=== PATIENT | male | born 1970 | race Caucasian/White ===

== ENCOUNTER 2020-02-28 06:21 | Day surgery (SDC) | payer MEDICARE ==
[~2020-02-28] VITALS: Ht 165.1 cm; Wt 152.4 kg
--- NOTE | ~2020-02-28 | OP ---
PATIENT NAME: CALI TURNER MEDICAL RECORD: [id number] :68 LOCATION:D.OPS ADMISSION DATE: SURGEON: DONALD ZAMORANO DPM DATE OF OPERATION: 02/28/2020 PREOPERATIVE DIAGNOSES: Right ankle ATF rupture and ankle arthritis. POSTOPERATIVE DIAGNOSES: Right ankle ATF rupture and ankle arthritis. PROCEDURES: 1. Right ankle scope. 2. Right ATF ligament repair. ANESTHESIA: Preoperative popliteal block per the anesthesia department as well as infiltration of the right ankle intraoperatively with Marcaine plain, 10 cc total as well as general anesthesia. HEMOSTASIS: Right thigh tourniquet at 350 mmHg. PREOPERATIVE DETAILS: The patient was taken to the OR and placed on the operating table in supine position. This was followed by induction of general anesthesia. The right extremity was then prepped and draped in usual aseptic technique followed by exsanguination of extremity and inflation of tourniquet. At this time, the Marcaine was infiltrated in the ankle joint. PROCEDURE #1: Ankle arthroscopy, right. Two small stab incisions were made over the anterior medial shoulder and anterior lateral shoulder of the right ankle. The incisions were carried down bluntly to the joint capsule and were punctured the camera was introduced to the medial portal through the cannula. Initial evaluation showed significant chondromalacia, hypertrophied capsule, adhesions. The synovial shaver was introduced in the lateral portal and extensive synovial hypertrophied tissue as well as chondromalacia debridement occur. The portals were switched with the camera introduced laterally and the synovial shaver medially. Continued extensive debridement occurred. There was noted to be significant arthritis of the talar dome as well as anterior distal tibia had significant chondromalacia. Camera and synovial shaver were removed. PROCEDURE #2: ATF repair, right ankle. The lateral stab incision was lengthened distal in a hockey J incision and finished just under the distal fibula. The incision was deepened down through subcutaneous tissue, cauterizing vessels as we went. Dissection was carried down to the joint capsule where a capsulotomy was performed. The ATF ligament was essentially gone. The ligament was recreated with the internal brace with an implant in the talus as well as the fibula. Once the internal brace was placed in a proper anatomic fitment. There was excellent range of motion of the joint as well as negative anterior drawer test. At this time, a modified Brostrom was performed over the top of the repair followed by closure of the deep tissue with 2-0 Vicryl. The subcutaneous tissue was closed with 4-0 Rapide and the skin was closed with 4-0 Rapide in a subcuticular technique followed by Dermabond. The incision on the small stab incision was also closed with 4-0 Rapide in a simple interrupted technique. Adaptic, 4 x 4 and Conform were used to dress the wound followed by application of modified Shearer compression dressing. Tourniquet was deflated. POSTOPERATIVE DETAILS: The patient tolerated the procedure well and left the OR with vital signs stable and vascular status at preoperative levels. The patient OPERATIVE REPORT [id number] CALI TURNER HUMZA was transported to recovery per anesthesia in stable condition. TRANSINT:[id number] Voice Confirmation ID: [id number] DOCUMENT ID: [id number] DONALD ZAMORAON DPM CC: [id number] DICTATION DATE: 02/28/20 1023 FERRYBOAT HELPER: 02/28/20 1310 [facility] [address] [place] [address]
[2020-02-28 06:48] LABS: HEMATOCRIT 42.7 % (42.0-54.0); HEMOGLOBIN 13.8 g/dL (13.5-17.5); MCH 28.2 pg (26.0-34.0); MCHC 32.3 g/dL (31.0-37.0); MCV 87.3 fL (80.0-100.0); MEAN PLATELET VOLUME 9.7 fL (7.4-10.4); RBC 4.89 10x6/uL (4.20-6.10); WBC 7.9 10x3/uL (4.8-10.8)
[2020-02-28 07:01] LABS: CALC OSMOLALITY 276 mosm/kg (275-300); CALCIUM 8.8 mg/dL (8.5-10.1); CARBON DIOXIDE 26.3 mmol/L (21.0-32.0); CHLORIDE - SERUM 101 mmol/L (98-107); CREATININE - SERUM 0.9 mg/dL (0.6-1.3); GLUCOSE 171 mg/dL (74-106); POTASSIUM - SERUM 3.7 mmol/L (3.5-5.1); SODIUM 136 mmol/L (136-145); UREA NITROGEN 14 mg/dL (7-18); eGFR NON AFRICAN AMERICAN > 90 mL/min (90-120)
[2020-02-28 07:46] VITALS: BP 123/83; Ht 165.1 cm; Wt 152.4 kg
== END 2020-02-28 12:05 | disposition home or self-care (01) ==
LOC: D.OPS 06:21 → D.PAN 08:30 → D.OPS 09:45 → D.PAN 09:45 → D.OPS 12:05
PROVIDERS: Anesthesiology; ATTEND Podiatrist
DX: S93.491A Sprain of other ligament of right ankle, initial encounter (principal); X58.XXXA Exposure to other specified factors, initial encounter; M19.079 Primary osteoarthritis, unspecified ankle and foot; I10 Essential (primary) hypertension; E11.9 Type 2 diabetes mellitus without complications; Z79.84 Long term (current) use of oral hypoglycemic drugs